=== PATIENT | male | born 1990 | race Caucasian/White ===

== ENCOUNTER 2016-12-05 20:38 | Emergency (ER) | payer BC ==
[~2016-12-05] VITALS: Ht 190.5 cm; Wt 127.3 kg
[~2016-12-05 20:38] MED LIST: ADDERALL10 MG PO; SERTRALINE25 MG PO
[2016-12-05 20:49] VITALS: BP 166/85
[2016-12-05 22:58] LABS: INFLUENZA B NEGATIVE
[2016-12-05 23:34] VITALS: PULSE 97; TEMP 100.7
== END 2016-12-05 23:43 | disposition home or self-care (01) ==
LOC: COL.ER 20:38
PROVIDERS: Nurse Practitioner
DX: J98.9 Respiratory disorder, unspecified (principal); F90.9 Attention-deficit hyperactivity disorder, unspecified type

== ENCOUNTER 2017-07-11 12:40 | Outpatient (RCR) | payer OTHER | END 2017-08-30 10:33 | disposition home or self-care (01) | LOC: WSOH 12:40 | DX: S61.216A Laceration without foreign body of right little finger without damage to nail, initial encounter (principal); W26.8XXA Contact with other sharp object(s), not elsewhere classified, initial encounter; Y99.0 Civilian activity done for income or pay; Z88.1 Allergy status to other antibiotic agents; Z88.0 Allergy status to penicillin; Z88.8 Allergy status to other drugs, medicaments and biological substances ==

== ENCOUNTER → 2020-12-27 | Outpatient (CLI) | payer BC ==
[~2020-12-27] MED LIST changes: +DESYREL 50MG50 MG PO; +K-DUR20 MEQ PO; +PEPCID 20MG TAB20 MG PO; +PRIL40 PO; +PRINIVIL20 MG PO; +PROZAC 20MG20 MG PO; +TOPROL XL 25MG25 MG PO; +ZOFRAN ODT4 MG PO
[2020-12-27 15:15] LABS: ALBUMIN 4.5 gm/dL (3.5-5.0); BASO # 0.1 (0.0-0.2); BASO % 0.7 % (0.0-2.0); BILIRUBIN,TOTAL 0.5 mg/dL (0.0-1.0); CALCIUM 9.4 mg/dL (8.4-10.2); EOS # 0.4 (0.0-0.7); EOS % 4.1 % (0-4.0); GRAN # 7.3 (1.4-6.5); GRAN % 67.9 % (42.2-75.2); HEMATOCRIT 44.5 % (42.0-52.0); HEMOGLOBIN 14.8 g/dl (13.5-18.0); LYMPH # 2.1 (1.2-3.4); LYMPH % 19.8 % (20.0-51.0); MEAN CELL VOLUME 89 fl (80.0-100.0); MEAN CORPUSCULAR HEMOGLOBIN 30 pg (27.0-31.0); MEAN CORPUSCULAR HGB CONC 33 g/dl (33.0-37.0); MEAN PLATELET VOLUME 11.7 fl (7.4-10.4); MONO # 0.8 (0.1-0.6); MONO % 7.2 % (1.7-9.3); PLATELET COUNT 233 K/mm3 (130-400); POTASSIUM 3.4 mmol/L (3.4-5.0); RED BLOOD COUNT 4.98 M/mm3 (4.20-5.60); REDCELL DISTRIBUTION WIDTH-CV 12.7 % (11.5-14.5); TOTAL PROTEIN 7.9 gm/dL (6.4-8.2)
== END ==
LOC: COL.LAB 13:57 → COL.RAD 13:57
PROVIDERS: Physician Assistant Medical
DX: N20.1 Calculus of ureter (principal)
CPT/HCPCS: Q9967

== ENCOUNTER 2020-12-29 16:25 | Emergency (ER) | payer BC ==
[~2020-12-29] VITALS: Ht 190.5 cm; Wt 130.9 kg
[~2020-12-29 16:25] MED LIST changes: -DESYREL 50MG50 MG PO; -K-DUR20 MEQ PO; -PEPCID 20MG TAB20 MG PO; -PRIL40 PO; -PRINIVIL20 MG PO; -PROZAC 20MG20 MG PO; -TOPROL XL 25MG25 MG PO; -ZOFRAN ODT4 MG PO
[2020-12-29 17:28] LABS: COLLECTION METHOD CLEAN CATCH
[2020-12-29 17:32] LABS: BASO # 0.1 (0.0-0.2); BASO % 0.6 % (0.0-2.0); EOS # 0.4 (0.0-0.7); EOS % 3.1 % (0-4.0); GRAN # 8.1 (1.4-6.5); GRAN % 65.4 % (42.2-75.2); HEMATOCRIT 45.6 % (42.0-52.0); HEMOGLOBIN 15.5 g/dl (13.5-18.0); LYMPH # 2.8 (1.2-3.4); LYMPH % 22.3 % (20.0-51.0); MEAN CELL VOLUME 88 fl (80.0-100.0); MEAN CORPUSCULAR HEMOGLOBIN 30 pg (27.0-31.0); MEAN CORPUSCULAR HGB CONC 34 g/dl (33.0-37.0); MEAN PLATELET VOLUME 11.7 fl (7.4-10.4); MONO % 8.4 % (1.7-9.3); PLATELET COUNT 261 K/mm3 (130-400); RED BLOOD COUNT 5.19 M/mm3 (4.20-5.60); REDCELL DISTRIBUTION WIDTH-CV 12.7 % (11.5-14.5)
[2020-12-29 17:40] LABS: MUCOUS Present /lpf; PH 6 (5-8); SQUAMOUS EPITHELIAL 0-2 /hpf; URINE APPEARANCE Clear; URINE BACTERIA Rare /hpf; URINE BILIRUBIN Negative (NEGATIVE); URINE BLOOD Negative (NEGATIVE); URINE COLOR Yellow; URINE GLUCOSE Negative (NEGATIVE); URINE KETONE Trace (NEGATIVE); URINE LEUKOCYTE ESTERASE Negative (NEGATIVE); URINE NITRATE Negative (NEGATIVE); URINE PROTEIN(semi-quant) Negative (NEGATIVE); URINE RBC 0-2 /hpf; URINE UROBILINOGEN Negative (NEGATIVE)
[2020-12-29 17:47] LABS: ALBUMIN 4.9 gm/dL (3.5-5.0); BILIRUBIN,TOTAL 0.8 mg/dL (0.0-1.0); C-REACTIVE PROTEIN 1.6 mg/dL (0.0-0.9); CALCIUM 9.9 mg/dL (8.4-10.2); CREATININE, serum 1.5 (0.66-1.25); POTASSIUM 3.2 mmol/L (3.4-5.0); TOTAL PROTEIN 8.9 gm/dL (6.4-8.2)
[2020-12-29 19:19] LABS: MONOSCREEN NEGATIVE
[2020-12-29] MEDS ORDERED: K-DUR20 MEQ PO (20:09)
[2020-12-29 21:18] VITALS: BP 127/77; PULSE 82; TEMP 98.4
[2021-03-31] MEDS ORDERED: PROZAC 20MG20 MG PO (06:41)
[2021-03-31] MEDS ORDERED: PRINIVIL20 MG PO (06:42)
[2021-03-31] MEDS ORDERED: PRIL40 PO (06:42)
[2021-03-31] MEDS ORDERED: TOPROL XL 25MG25 MG PO (06:42)
[2021-03-31] MEDS ORDERED: DESYREL 50MG50 MG PO (06:43)
== END 2020-12-29 21:18 | disposition home or self-care (01) ==
LOC: COL.ER 16:25
PROVIDERS: Nurse Practitioner Primary Care
DX: R79.89 Other specified abnormal findings of blood chemistry (principal); E87.6 Hypokalemia; Z87.442 Personal history of urinary calculi; Z88.0 Allergy status to penicillin; Z88.1 Allergy status to other antibiotic agents
CPT/HCPCS: J2405; J7030

== ENCOUNTER 2021-02-11 21:49 | Emergency (ER) | payer BC ==
[~2021-02-11] VITALS: Ht 190.5 cm; Wt 122.7 kg
[~2021-02-11 21:49] MED LIST changes: +K-DUR20 MEQ PO
[2021-02-11 23:17] LABS: BASO % 0.8 % (0.0-2.0); EOS # 0.2 (0.0-0.7); EOS % 6.2 % (0-4.0); GRAN # 1.9 (1.4-6.5); GRAN % 50.8 % (42.2-75.2); HEMATOCRIT 40.3 % (42.0-52.0); HEMOGLOBIN 13.3 g/dl (13.5-18.0); LYMPH % 25.5 % (20.0-51.0); MEAN CELL VOLUME 89 fl (80.0-100.0); MEAN CORPUSCULAR HEMOGLOBIN 29 pg (27.0-31.0); MEAN CORPUSCULAR HGB CONC 33 g/dl (33.0-37.0); MEAN PLATELET VOLUME 11.5 fl (7.4-10.4); MONO # 0.6 (0.1-0.6); MONO % 16.4 % (1.7-9.3); PLATELET COUNT 171 K/mm3 (130-400); RED BLOOD COUNT 4.54 M/mm3 (4.20-5.60); REDCELL DISTRIBUTION WIDTH-CV 12.7 % (11.5-14.5)
[2021-02-11 23:43] LABS: ALANINE AMINOTRANSFERASE 45 U/L (0-55); ALBUMIN 3.5 gm/dL (3.5-5.0); ALKALINE PHOSPHATASE 51 U/L (0-750); ANION GAP 10 mmol/L (7-16); AST,SGOT 28 U/L (5-34); BILIRUBIN,TOTAL 0.3 mg/dL (0.2-1.2); BLOOD UREA NITROGEN 7 mg/dL (9-21); CALCIUM 8.6 mg/dL (8.4-10.2); CARBON DIOXIDE 20 mmol/L (22-29); CHLORIDE 111 mmol/L (98-107); CREATININE, serum 1.09 mg/dL (0.72-1.25); GLUCOSE 139 mg/dL (70-99); POTASSIUM 3.3 mmol/L (3.5-4.5); SODIUM 141 mmol/L (136-145); TOTAL PROTEIN 6.8 gm/dL (6.2-8.1)
[2021-02-11 23:49] LABS: TROPONIN-I < 0.010 ng/mL (0.00-0.033)
[2021-02-12] MEDS ORDERED: PEPCID 20MG TAB20 MG PO (01:34)
[2021-02-12] MEDS ORDERED: ZOFRAN ODT4 MG PO (01:34)
[2021-02-12 02:40] VITALS: BP 153/96; PULSE 76; TEMP 98.4
[2021-03-31] MEDS ORDERED: PROZAC 20MG20 MG PO (06:41)
[2021-03-31] MEDS ORDERED: PRINIVIL20 MG PO (06:42)
[2021-03-31] MEDS ORDERED: TOPROL XL 25MG25 MG PO (06:42)
[2021-03-31] MEDS ORDERED: PRIL40 PO (06:42)
[2021-03-31] MEDS ORDERED: DESYREL 50MG50 MG PO (06:43)
== END 2021-02-12 02:52 | disposition home or self-care (01) ==
LOC: COL.ER 21:49
PROVIDERS: Emergency Medicine
DX: U07.1 COVID-19 (principal); R10.13 Epigastric pain; F41.9 Anxiety disorder, unspecified; E66.9 Obesity, unspecified; F17.290 Nicotine dependence, other tobacco product, uncomplicated; Z79.899 Other long term (current) drug therapy; Z88.0 Allergy status to penicillin; Z88.1 Allergy status to other antibiotic agents
CPT/HCPCS: J1100; J7030; Q0244

== ENCOUNTER 2021-03-31 06:51 | Day surgery (SDC) | payer BC ==
[~2021-03-31] VITALS: Ht 190.5 cm; Wt 115.0 kg
[~2021-03-31 06:51] MED LIST changes: +DESYREL 50MG50 MG PO; +PEPCID 20MG TAB20 MG PO; +PRIL40 PO; +PRINIVIL20 MG PO; +PROZAC 20MG20 MG PO; +TOPROL XL 25MG25 MG PO; +ZOFRAN ODT4 MG PO
[2021-03-31 07:20] VITALS: BP 149/96; PULSE 73; TEMP 98.4
[2021-03-31 08:55] VITALS: BP 144/88; PULSE 63
[2021-03-31 09:10] VITALS: BP 140/88; PULSE 61; TEMP 97.5
[2021-03-31 09:25] VITALS: BP 139/91; PULSE 61
--- NOTE | 2021-03-31 10:03 | NUR ---
0855 - Pt returns from endo procedure via cart to [facility]. Pt ambulates from cart to recliner with RN assist. Monitors on and alarms set. Call light within reach. Report received from NARESH Soni. Pt alert and oriented. Pt requests juice and muffin. Pt denies any pain or nausea. 0910- Pt taking food and drink well. No complications noted. 0925- Discharge instructions given to pt. All questions answered to pt and father's satisfaction. Handed to pt education material and discharge information. Pt allowed to rest in room and finish muffin. Instructed to use call light when ready for discharge. 1003- Pt transferred out of the hospital via wheelchair and RN assist, to private vehicle driven by father.
== END 2021-03-31 10:03 | disposition home or self-care (01) ==
LOC: SDCO 06:51
DX: K29.50 Unspecified chronic gastritis without bleeding (principal); K21.9 Gastro-esophageal reflux disease without esophagitis; K59.00 Constipation, unspecified; R19.7 Diarrhea, unspecified; I10 Essential (primary) hypertension; E72.51 Non-ketotic hyperglycinemia; F41.9 Anxiety disorder, unspecified; F90.9 Attention-deficit hyperactivity disorder, unspecified type; F32.9 Major depressive disorder, single episode, unspecified; Z79.899 Other long term (current) drug therapy; Z87.891 Personal history of nicotine dependence; Z80.0 Family history of malignant neoplasm of digestive organs
CPT/HCPCS: J2704; J7120

== ENCOUNTER → 2022-01-22 | Outpatient (CLI) | payer BC | LOC: COL.RAD 13:05 | DX: S93.491A Sprain of other ligament of right ankle, initial encounter (principal); M76.71 Peroneal tendinitis, right leg; M66.871 Spontaneous rupture of other tendons, right ankle and foot; X58.XXXA Exposure to other specified factors, initial encounter ==